=== PATIENT | male | born 1955 | race Caucasian/White ===

== ENCOUNTER 2017-07-09 08:31 | Day surgery (SDC) | payer BC ==
[~2017-07-09] VITALS: Ht 177.8 cm; Wt 100.2 kg
[2017-07-09 08:55] VITALS: BP 164/83; PULSE 69; TEMP 98
[2017-07-09] MEDS ORDERED: ASPIRIN 81M81 MG/TA2 PO (09:14)
[2017-07-09] MEDS ORDERED: GLUCOPHAGE1000 MG PO (09:15)
[2017-07-09] MEDS ORDERED: GLUCOTROL 5M5 MG/TAB PO (09:16)
[2017-07-09] MEDS ORDERED: PRINIVIL40 MG PO (09:16)
[2017-07-09] MEDS ORDERED: HCTZ12.5TAB PO (09:17)
[2017-07-09 10:48] VITALS: BP 127/75; PULSE 70; TEMP 97.7
[2017-07-09 11:00] VITALS: BP 128/81; PULSE 73
[2017-07-09 11:15] VITALS: BP 121/68; PULSE 66
[2017-07-09 15:28] VITALS: BP 141/89; PULSE 74
== END 2017-07-09 11:55 | disposition home or self-care (01) ==
LOC: SDCO 08:31
DX: D12.3 Benign neoplasm of transverse colon (principal); D12.5 Benign neoplasm of sigmoid colon; K63.89 Other specified diseases of intestine; K57.30 Diverticulosis of large intestine without perforation or abscess without bleeding; K64.0 First degree hemorrhoids; E11.9 Type 2 diabetes mellitus without complications; I10 Essential (primary) hypertension; G47.30 Sleep apnea, unspecified; I82.409 Acute embolism and thrombosis of unspecified deep veins of unspecified lower extremity
CPT/HCPCS: OP; J2250; J3010; J7030